=== PATIENT | female | born 1950 | race Two or more races ===

== ENCOUNTER 2018-01-12 10:38 | Day surgery (SDC) | payer MEDICARE, OTHER ==
[2018-01-12] MEDS ORDERED: LIDOCAINE HCL 1% 20 ML VIAL MC ONE (10:39)
[2018-01-12] MEDS ORDERED: PROPOFOL 200 MG/20 ML BOTTLE IV ONE (10:39)
[2018-01-12 12:19] LABS: BASOPHILS # (AUTO) 0.1 K/uL (0.0-8.0); BASOPHILS % (AUTO) 0.9 % (0.0-2.0); EOSINOPHILS # (AUTO) 0.2 K/uL (0.0-0.7); EOSINOPHILS % (AUTO) 2.2 % (0.0-7.0); HEMATOCRIT 36.6 % (31.2-41.9); HEMOGLOBIN 12.4 g/dL (10.9-14.3); LYMPHOCYTES % (AUTO) 27.1 % (20.5-51.5); MEAN CORPUSCULAR HEMOGLOBIN 27.4 uug (24.7-32.8); MEAN CORPUSCULAR HGB CONC 34 g/dL (32.3-35.6); MEAN CORPUSCULAR VOLUME 80.9 fL (75.5-95.3); MONOCYTES # (AUTO) 0.4 K/uL (2.0-10.0); MONOCYTES % (AUTO) 5.2 % (0.0-11.0); NEUTROPHILS # (AUTO) 4.8 K/uL (1.8-8.9); NEUTROPHILS % (AUTO) 64.6 % (38.5-71.5); PLATELET COUNT (AUTO) 257 K/uL (179-408); RED BLOOD CELL COUNT(AUTO) 4.53 MIL/uL (3.63-4.92); WHITE BLOOD COUNT (AUTO) 7.4 K/uL (3.8-11.8)
[2018-01-12 12:26] LABS: *BILIRUBIN,URIN NEGATIVE (NEGATIVE); *BLOOD, URINE 2+ (NEGATIVE); *CLARITY,URINE CLEAR (CLEAR); *COLOR,URINE YELLOW (YELLOW); *KETONES,URINE NEGATIVE (NEGATIVE); *PROTEIN,URINE NEGATIVE (NEGATIVE); *UROBILINOGEN,URINE 0.2 E.U./dl (NORMAL); LEUKOCYTE ESTERASE ,URINE 1+ (NEGATIVE); NITRITE, URINE NEGATIVE (NEGATIVE); UGLUCOSE NEGATIVE (NEGATIVE)
[2018-01-12 12:26] LABS: POTASSIUM 5.1 mmol/L (3.5-5.1)
[2018-01-12 12:27] LABS: RBC,URINE 0-3 /HPF (0-3)
[2018-01-12 12:28] LABS: BACTERIA,URINE FEW /HPF (NONE SEEN); SQUAMOUS EPITHELIAL CELL,UR MODERATE /HPF (NONE SEEN)
== END 2018-01-12 14:38 | disposition home or self-care (01) ==
LOC: DS 10:38
PROVIDERS: ATTEND Internal Medicine Gastroenterology
DX: K25.9 Gastric ulcer, unspecified as acute or chronic, without hemorrhage or perforation (principal); I70.90 Unspecified atherosclerosis
CPT/HCPCS: 36415; 43239; 71045; 80048; 81001; 82962; 85025; 85730; 93005; A4217; A4663; J3490 ×2; J7120; 88342

== ENCOUNTER 2021-08-13 08:30 | Outpatient (CLI) | payer MEDICARE, OTHER | END 2021-08-13 10:17 | disposition home or self-care (01) | LOC: LAB 10:17 | PROVIDERS: ATTEND Orthopaedic Surgery | DX: Z01.812 Encounter for preprocedural laboratory examination (principal); Z20.822 Contact with and (suspected) exposure to COVID-19 ==

== ENCOUNTER 2021-08-15 07:24 | Day surgery (SDC) | payer MEDICARE, OTHER ==
[2021-08-15] MEDS ORDERED: PROPOFOL 200 MG/20 ML BOTTLE IV ONE (07:25)
[2021-08-15] MEDS ORDERED: CEFAZOLIN 1 G VIAL IM ONE (07:25)
[2021-08-15] MEDS ORDERED: KETOROLAC TROMETHAMINE 30 MG INJ IM ONE (07:25)
[2021-08-15] MEDS ORDERED: ONDANSETRON 4 MG/2 ML VIAL IV ONE (07:25)
[2021-08-15] MEDS ORDERED: SEVOFLURANE 250 ML BOTTLE IH ONE (07:25)
[2021-08-15] MEDS ORDERED: DEXAMETHASONE SOD PHOSPHATE 4 MG INJ IV ONE (07:25)
[2021-08-15] MEDS ORDERED: LIDOCAINE-MPF 2% 5 ML VIAL IJ ONE (07:25)
[2021-08-15] MEDS ORDERED: BUPIVACAINE/EPI PF 0.25% 30 ML VIAL ONE (08:30)
[2021-08-15] MEDS ORDERED: MORPHINE SULFATE PF 10 MG/10 ML AMPUL IV ONE (08:30)
[2021-08-15] MEDS ORDERED: HYDROMORPHONE 2 MG/1 ML DISP.SYRIN ONE (08:52)
[2021-08-15] MEDS ORDERED: HYDROMORPHONE 1 MG/1 ML DISP.SYRIN ONE (11:04)
[2021-08-15] MEDS ORDERED: ONDANSETRON 4 MG/2 ML VIAL ONE (11:07)
[2021-08-15] MEDS ORDERED: HYDROCODONE/APAP 5-325MG TABLET ONE (12:07)
== END 2021-08-15 12:45 | disposition home or self-care (01) ==
LOC: DS 07:24
PROVIDERS: ATTEND Orthopaedic Surgery
DX: S83.241A Other tear of medial meniscus, current injury, right knee, initial encounter (principal); S83.281A Other tear of lateral meniscus, current injury, right knee, initial encounter; M17.11 Unilateral primary osteoarthritis, right knee; M94.261 Chondromalacia, right knee; M65.88 Other synovitis and tenosynovitis, other site; I10 Essential (primary) hypertension; F32.9 Major depressive disorder, single episode, unspecified; F41.9 Anxiety disorder, unspecified; E11.9 Type 2 diabetes mellitus without complications; Z79.899 Other long term (current) drug therapy; Z98.890 Other specified postprocedural states; X58.XXXA Exposure to other specified factors, initial encounter; Y93.89 Activity, other specified; Y92.89 Other specified places as the place of occurrence of the external cause; Y99.8 Other external cause status
CPT/HCPCS: 20610; 29880; 97116; 97161; 97530; J0690; J1100; J1170 ×2; J1885; J2274; J2405 ×2; J3490 ×2; A4663